=== PATIENT | male | born 1930 | race Caucasian/White ===

== ENCOUNTER 2017-03-02 23:10 | Inpatient (IN) | payer MEDICARE, BC ==
--- NOTE | 2017-03-02 23:21 | EDM.PDOC ---
ED HPI GENERAL MEDICAL PROBLEM - General Chief Complaint: General Stated Complaint: "Hurts above my hips and not voiding like I should" Time Seen by Provider: 03/02/17 23:21 Source of Information: Reports: Patient History Limitations: Reports: No Limitations - History of Present Illness INITIAL COMMENTS - FREE TEXT/NARRATIVE: Martín is an 86 year old male who presents to the ER with complaints of "not voiding much." He reports that he has not been drinking much today and has noticed that he hasn't been urinating as much. He reports he has voided 4 times today and has only went a little with each void. He reports he maybe has drank 3 glasses of water today. He also reports that he was recently seen in the clinic by Dr. Sosa on 02/28/2017, was diagnosed with bronchitis. He has been taking his antibiotic as prescribed. He reports he also had a steroid shot at that time. He reports his cough has gotten worse and he has been coughing up much more sputum. He does report shortness of breath with exertion. Denies fever , but reports he has been chilled. He also reports he has felt more weak than normal. Denies nausea, vomiting, diarrhea, chest pain. He reports he is supposed to have heart valve surgery on Monday, but was trying to "get over this cold." Onset: Gradual Onset Date: 02/28/17 Duration: Getting Worse Location: Reports: Back, Pelvis Associated Symptoms: Reports: Cough, cough w sputum, Fever/Chills (chills), Shortness of Breath, Weakness. 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 (see below) (antibiotics & steroid injection in clinic 02/28/2017) Bilateral Upper Hip Pain Score (Numeric/FACES): 5 - Related Data Allergies Allergy/AdvReac Type Severity Reaction Status Date / Time ceftriaxone sodium Allergy Rash Verified 03/02/17 23:45 [From Rocephin] cefuroxime axetil Allergy Rash Verified 03/02/17 23:45 [From Ceftin] ciprofloxacin [From Cipro] Allergy Cannot Verified 03/02/17 23:45 Remember ciprofloxacin HCl Allergy Cannot Verified 03/02/17 23:45 [From Cipro] Remember doxycycline Allergy Rash Verified 03/02/17 23:45 Iodinated Contrast- Oral and Allergy Shortness Verified 03/02/17 23:45 IV Dye of Breath moxifloxacin HCl Allergy Edema Verified 03/02/17 23:45 [From Avelox] Sulfa (Sulfonamide Allergy Diarrhea Verified 03/02/17 23:45 Antibiotics) Home Meds: Home Meds Albuterol [Ventolin HFA] 1 - 2 inhaler INH ASDIRECTED PRN 03/23/13 [History] Arformoterol [Brovana] 1 inh NEB BID 03/23/13 [History] Ascorbic Acid [Vitamin C] 500 mg PO DAILY 03/23/13 [History] Aspirin [Ecotrin] 325 mg PO DAILY 03/23/13 [History] Budesonide [Pulmicort] 1 inh NEB BID 03/23/13 [History] Doxazosin [Doxazosin Mesylate] 4 mg PO BEDTIME 03/23/13 [History] Fexofenadine [Maryellen] 180 mg PO DAILY 03/23/13 [History] Irbesartan [Avapro] 150 mg PO DAILY 03/23/13 [History] Metoprolol Tartrate [Lopressor] 50 mg PO BID 03/23/13 [History] Montelukast [Singulair] 10 mg PO DAILY 03/23/13 [History] Multivitamin [Multivitamins] 1 each PO DAILY 03/23/13 [History] Nitroglycerin 0.4 mg SL ASDIRECTED PRN 03/23/13 [History] Rosuvastatin [Crestor] 5 mg PO DAILY 03/23/13 [History] Ubidecarenone [Co Q-10] 10 mg PO DAILY 03/23/13 [History] Folic Acid/Vitamin B Comp W-C [Folbee Plus] 1 tab PO DAILY 11/02/14 [History] Triamcinolone Acetonide [Nasacort AQ [place]] 1 spray NASBOTH BEDTIME 11/02/14 [ History] amLODIPine Besylate [Norvasc] 2.5 mg PO DAILY 11/02/14 [History] Hydrocortisone [Proctosol-HC] 1 applic TOP ASDIRECTED PRN 01/24/16 [History] Omeprazole [Omeprazole] 20 mg PO BID 01/24/16 [History] Vitamin E 400 unit PO DAILY 03/27/16 [History] Azithromycin 500 mg PO DAILY 03/02/17 [History] Past Medical History HEENT History: Reports: Impaired Vision Cardiovascular History: Reports: High Cholesterol, Hypertension Respiratory History: Reports: Asthma, COPD Gastrointestinal History: Reports: GERD Genitourinary History: Reports: BPH Musculoskeletal History: Reports: Osteoarthritis Oncologic (Cancer) History: Reports: Basal Cell Carcinoma - Past Surgical History HEENT Surgical History: Reports: Myringotomy w Tube(s) GI Surgical History: Reports: Appendectomy, Cholecystectomy, Colonoscopy, EGD Social & Family History - Family History Family Medical History: Noncontributory - Tobacco Use Smoking Status *Q: Never Smoker - Caffeine Use Caffeine Use: Reports: Soda - Alcohol Use Days Per Week of Alcohol Use: 0 - Recreational Drug Use Recreational Drug Use: No ED ROS GENERAL - Review of Systems Review Of Systems: See Below Constitutional: Reports: Chills, Weakness, Fatigue, Decreased Appetite. Denies : Fever, Diaphoresis HEENT: Reports: No Symptoms Respiratory: Reports: Shortness of Breath, Wheezing, Cough, Sputum. Denies: Pleuritic Chest Pain, Hemoptysis Cardiovascular: Reports: Dyspnea on Exertion. Denies: Chest Pain, Blood Pressure Problem, Edema, Lightheadedness, Syncope Endocrine: Reports: Fatigue GI/Abdominal: Reports: Decreased Appetite. Denies: Abdominal Pain, Diarrhea, Nausea, Vomiting : Reports: Flank Pain, Urinary Retention (he feels like he might not be emptying his bladder). Denies: Dysuria, Frequency, Hematuria, Urgency Musculoskeletal: Reports: No Symptoms Skin: Reports: No Symptoms Neurological: Reports: Weakness. Denies: Confusion, Dizziness, Headache, Paresthesia, Pre-Existing Deficit, Tingling, Gait Disturbance Psychiatric: Reports: No Symptoms Hematologic/Lymphatic: Reports: No Symptoms Immunologic: Reports: No Symptoms ED EXAM, GENERAL - Physical Exam Exam: See Below Exam Limited By: No Limitations General Appearance: Alert, WD/WN, No Apparent Distress Eye Exam: Bilateral Eye: EOMI, PERRL Head: Atraumatic, Normocephalic Neck: Normal Inspection, Supple, Non-Tender, Full Range of Motion Respiratory/Chest: No Respiratory Distress, No Accessory Muscle Use, Decreased Breath Sounds, Crackles (RLL) Cardiovascular: Normal Peripheral Pulses, Regular Rate, Rhythm, No Edema, Systolic Murmur GI/Abdominal: Normal Bowel Sounds, Soft, Non-Tender, No Organomegaly, No Distention, No Abnormal Bruit, No Mass (Male) Exam: No: Suprapubic Fullness Back Exam: Normal Inspection, Full Range of Motion. No: CVA Tenderness (L), CVA Tenderness (R) Extremities: Normal Inspection, Normal Range of Motion, Non-Tender, Normal Capillary Refill, No Pedal Edema Neurological: Alert, Oriented, CN II-XII Intact, Normal Cognition, Normal Gait, Normal Reflexes, No Motor/Sensory Deficits Psychiatric: Normal Affect, Normal Mood Skin Exam: Warm, Dry, Intact, Normal Color, No Rash Lymphatic: No Adenopathy Course - Vital Signs Last Recorded V/S: Last Vital Signs Temp 96.1 F 03/03/17 00:20 Pulse 70 03/03/17 00:20 Resp 18 03/03/17 00:20 BP 100/59 L 03/03/17 00:20 Pulse Ox 95 03/03/17 00:20 - Orders/Labs/Meds Orders: Active Orders 24 hr Category Date Time Status Bladder Only [Pelvis Non OB Ltd] [US] Stat Exams 03/02/17 23:34 Taken Chest 2V [CR] Stat Exams 03/02/17 23:41 Taken Labs: Laboratory Tests 03/02/17 03/02/17 03/02/17 Range/Units 23:24 23:36 23:36 WBC 13.9 H (5.0-10.0) 10^3/uL RBC 3.64 L (4.50-6.00) 10^6/uL Hgb 11.7 L (14.0-18.0) g/dL Hct 35.4 L (40.0-54.0) % MCV 97.3 H (82.0-94.0) fL MCH 32.1 H (27.0-32.0) pg MCHC 33.1 (33.0-38.0) g/dL RDW Coeff of Janay 12.9 (11.0-15.0) % Plt Count 168 (150-400) 10^3/uL Neut % (Auto) 85.4 H (35-85) % Lymph % (Auto) 5.0 L (10-55) % [place] % (Auto) 9.6 (0-16) % Eos % (Auto) 0 (0-5) % Baso % (Auto) 0 (0-3) % Neut # (Auto) 11.85 H (1.80-7.00) 10^3/uL Lymph # (Auto) 0.70 L (1.00-4.80) 10^3/uL [place] # (Auto) 1.34 H (0.00-0.80) 10^3/uL Eos # (Auto) 0.00 (0.00-0.45) 10^3/uL Baso # (Auto) 0.00 10^3/uL Sodium 135 L (136-145) mEq/L Potassium 4.7 (3.5-5.0) mEq/L Chloride 102 (98-106) mEq/L Carbon Dioxide 23 (21-32) mmol/L BUN 28 H D (7-18) mg/dL Creatinine 1.3 (0.7-1.3) mg/dL Est Cr Clr Drug Dosing TNP Estimated GFR (MDRD) 53 L (>=60) mL/min Glucose 150 H D (75-99) mg/dL Calcium 8.8 (8.4-10.1) mg/dL C-Reactive Protein 4.0 H (0.2-0.8) mg/dL Urine Color Yellow (YELLOW) Urine Appearance Clear (CLEAR) Urine pH 5.5 (4.5-8.0) Ur Specific [place] 1.025 H (1.003-1.020) Urine Protein 30 H (NEGATIVE) mg/dL Urine Glucose (UA) Negative (NEGATIVE) mg/dL Urine Ketones Negative (NEGATIVE) mg/dL Urine Occult Blood Negative (NEGATIVE) Urine Nitrite Negative (NEGATIVE) Urine Bilirubin Negative (NEGATIVE) Urine Urobilinogen 1.0 (0.2-1.0) EU/dL Ur Leukocyte Esterase Negative (NEGATIVE) Meds: Medications Discontinued Medications Generic Name Dose Route Start Last Admin Trade Name Freq PRN Reason Stop Dose Admin Acetaminophen 650 mg 03/03/17 00:20 Tylenol PO Q4H PRN Pain (Mild 1-3)/fever Albuterol/Ipratropium 3 ml 03/03/17 00:30 03/03/17 01:12 Duoneb 3.0-0.5 Mg/3 Ml NEB 3 ml QID LUCAS Administration Amlodipine Besylate 2.5 mg 03/03/17 08:00 Norvasc PO DAILY [facility] Ascorbic Acid 500 mg 03/03/17 08:00 Vitamin C PO DAILY LUCAS Aspirin 325 mg 03/03/17 08:00 Ecotrin PO DAILY LUCAS Atropine Sulfate 1 mg 03/03/17 01:42 03/03/17 01:42 Atropine 0.1 Mg/Ml IVPUSH 03/03/17 01:43 1 mg ONETIME ONE Administration Enoxaparin Sodium 30 mg 03/03/17 00:20 03/03/17 01:12 Lovenox SUBCUT 30 mg Q24H LUCAS Administration Epinephrine HCl 1 mg 03/03/17 01:42 03/03/17 01:40 Epinephrine 1:10,000 IVPUSH 03/03/17 01:43 1 mg ONETIME ONE Administration Lactated Ringer's 1,000 mls @ 75 mls/hr 03/03/17 00:20 03/03/17 01:08 Ringers, Lactated IV 75 mls/hr ASDIRECTED LUCAS Administration Levofloxacin/Dextrose 500 mg/ 100 mls @ 100 mls/hr 03/03/17 00:20 03/03/17 01 :13 Premix IV 100 mls/hr Q24H LUCAS Administration Magnesium Hydroxide 30 ml 03/03/17 00:20 Milk Of Magnesia PO Q12H PRN Constipation Methylprednisolone Sodium Succinate 62.5 mg 03/03/17 00:30 03/03/17 01:11 Solu-Medrol IVPUSH 62.5 mg Q24H LUCAS Administration Metoprolol Tartrate 50 mg 03/03/17 08:00 Lopressor PO BID [facility] Montelukast Sodium 10 mg 03/03/17 08:00 Singulair PO DAILY [facility] Nitroglycerin 0.4 mg 03/03/17 00:20 Nitrostat SL ASDIRECTED PRN Chest Pain Non-Formulary Medication 1 inh 03/03/17 08:00 Arformoterol [Brovana] NEB BID LUCAS Non-Formulary Medication 1 inh 03/03/17 08:00 Budesonide [Pulmicort] NEB BID [facility] Non-Formulary Medication 4 mg 03/03/17 20:00 Doxazosin [Cardura] PO BEDTIME [facility]UC[facility] Non-Formulary Medication 180 mg 03/03/17 08:00 Fexofenadine [Maryellen] PO DAILY [facility] Non-Formulary Medication 1 tab 03/03/17 08:00 Folic Acid/Vitamin B Comp W-C [Folbee Plus] PO DAILY [facility] Non-Formulary Medication 150 mg 03/03/17 08:00 Irbesartan [Avapro] PO DAILY [facility] Non-Formulary Medication 1 each 03/03/17 08:00 Multivitamin [Multivitamins] PO DAILY [facility] Non-Formulary Medication 20 mg 03/03/17 08:00 Omeprazole [Omeprazole] PO BID [facility] Non-Formulary Medication 5 mg 03/03/17 08:00 Rosuvastatin [Crestor] PO DAILY [facility] Non-Formulary Medication 400 unit 03/03/17 08:00 Vitamin E [Vitamin E] PO DAILY [facility] Ondansetron HCl 4 mg 03/03/17 00:20 Zofran IV Q6H PRN Nausea/Vomiting Temazepam 15 mg 03/03/17 00:20 03/03/17 01:13 Restoril PO 15 mg BEDTIME PRN Administration Sleep - Re-Assessments/Exams Free Text/Narrative Re-Assessment/Exam: Labs and CXR results reviewed with patient and . CXR does appear to show RLL infiltrate. Given CURB 65 score (elevated BUN, age, & hypotensive recently) , I recommend we admit to inpatient for IV antibiotics and fluids. Departure - Departure Time of Disposition: 00:15 Disposition: Admitted As Inpatient 68 Condition: Fair Clinical Impression: Pneumonia Qualifiers: Pneumonia type: due to unspecified organism Laterality: right Lung location: lower lobe of lung Qualified Code(s): J18.1 - Lobar pneumonia, unspecified organism - Discharge Information - Problem List & Annotations (1) Pneumonia SNOMED Code(s): 570590603 Code(s): J18.9 - PNEUMONIA, UNSPECIFIED ORGANISM Status: Acute Qualifiers: Pneumonia type: due to unspecified organism Laterality: right Lung location: lower lobe of lung Qualified Code(s): J18.1 - Lobar pneumonia, unspecified organism (2) Hypertension SNOMED Code(s): 48259163 Code(s): I10 - ESSENTIAL (PRIMARY) HYPERTENSION Status: Chronic Qualifiers: Hypertension type: essential hypertension Qualified Code(s): I10 - Essential (primary) hypertension (3) Hyperlipidemia SNOMED Code(s): 89229863 Code(s): E78.5 - HYPERLIPIDEMIA, UNSPECIFIED Status: Chronic Qualifiers: Hyperlipidemia type: unspecified Qualified Code(s): E78.5 - Hyperlipidemia , unspecified (4) Aortic stenosis, severe SNOMED Code(s): 72767703 Code(s): I35.0 - NONRHEUMATIC AORTIC (VALVE) STENOSIS Status: Chronic Priority: High - Problem List Review Problem List Initiated/Reviewed/Updated: Yes - My Orders Last 24 Hours: My Active Orders 03/02/17 23:34 Bladder Only [Pelvis Non OB Ltd] [US] Stat 03/02/17 23:41 Chest 2V [CR] Stat - Assessment/Plan Admission H&P: Please use this note as an admission H&P Last 24 Hours: My Active Orders 03/02/17 23:34 Bladder Only [Pelvis Non OB Ltd] [US] Stat 03/02/17 23:41 Chest 2V [CR] Stat Plan: Admit to acute to Dr. Sosa Will start Levaqiun 500 mg Q 24 hrs, LR @ 100 mL/hr, solumedrol 62.5 mg Q 24 hrs , duonebs. Will get sputum culture Daily CBC & CRP
[2017-03-02 23:45] LABS: CHLORIDE,CL 102 mEq/L (98-106); SODIUM,NA 135 mEq/L (136-145)
[2017-03-03] MEDS ORDERED: Ondansetron 4 MG/2 ML SDV IV PRN (00:20)
[2017-03-03] MEDS ORDERED: Nitroglycerin 0.4 MG Tab.SL SL PRN (00:20)
[2017-03-03] MEDS ORDERED: Lactated Ringers 1,000 ML IV SCH (00:20)
[2017-03-03] MEDS ORDERED: Temazepam 15 MG Cap PO PRN (00:20)
[2017-03-03] MEDS ORDERED: Magnesium Hydroxide 400 MG/5 ML Susp 30 ML Cup PO PRN (00:20)
[2017-03-03] MEDS ORDERED: Enoxaparin 30 MG/0.3 ML Syringe SUBCUT SCH (00:20)
[2017-03-03] MEDS ORDERED: Levofloxacin/Dextrose 5%-Water 500 MG in Premix Bag 1 BAG IV SCH (00:20)
[2017-03-03] MEDS ORDERED: Acetaminophen 325 MG Tab PO PRN (00:20)
[2017-03-03] MEDS ORDERED: Albuterol/Ipratropium 3.0-0.5 MG/3 ML Neb Soln NEB SCH (00:30)
[2017-03-03] MEDS ORDERED: methylPREDNISolone Sodium Succinate 125 MG/2 ML SDV IVPUSH SCH (00:30)
[2017-03-03 01:14] VITALS: BP 100/59
[2017-03-03] MEDS ORDERED: Atropine 0.1 MG/ML 10 ML Syringe IVPUSH ONE (01:42)
[2017-03-03] MEDS ORDERED: EPINEPHrine 1:10,000 1 MG/10 ML Syringe IVPUSH ONE (01:42)
--- NOTE | 2017-03-03 03:08 | PCM.DCSUM1 ---
Discharge Summary - Hospital Course HPI Initial Comments: Martín is an 86 year old male who was admitted to the hospital from the ER for RLL pneumonia. At time of admission, patient was alert and oriented. He originally came to the ER with complaint of incomplete bladder emptying. He had reported that he felt like he had not been urinating much throughout the day and was going small amounts with each one. He did not feel like he was emptying and was having some pain in his bilateral pelvic area. He also reported he had a "chest cold." He was seen in the clinic on 02/28/2017 and diagnosed with bronchitis. He was started on azithromycin and given a steroid shot. He reported that the past few days his cough has gotten more productive. He reported some shortness of breath, slightly increased from his baseline. At time of admission he denied any chest pain, nausea, vomiting, diarrhea, dizziness, lightheadedness, confusion. He had no other associated symptoms. 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 Nursing staff reportedly got the patient up to the bathroom. He reported that he felt faint, so he was taken back to the bed. Once he got into the bed, nursing staff reported he went unresponsive and was pulseless. Chest compressions were started immediately. Patient was given 1 dose of epinephrine and 1 dose of atropine. Cardiac monitoring did show asystole. Estimated time of CPR was 10 minutes. Patient is a DO NOT INTUBATE. Patient is confused at present , was not confused upon admission. Vital signs are stable. Patient was transfused 2 L LR. Lab work at time of admission showed a WBC of 13.9, CRP 4.0, BUN 28. All other lab were relatively WNL. Following cardiac arrest, troponin 0.057, lactic acid 4.2. No electrolyte imbalances. Patient does complain of some chest pain currently across his anterior chest in the area where chest compressions were formed. EKG shows sinus tachycardia. Patient is alert, but confused. Risks and benefits of transfer were discussed with family. Risks of transfer include worsening of condition enroute, , helicopter crash. Benefits of transfer include higher level of care, cardiac specialty, and intensive care unit. Risks of nontransfer include worsening of condition, , and nonspecialized care. Benefits of nontransfer include familiar environment and close to home. Family verbalize understanding and are agreeable with transfer. - Discharge Data Discharge Date: 03/03/17 Discharge Disposition: DC/Tfer to Acute Hospital 02 Condition: Fair - Discharge Diagnosis/Problem(s) (1) Pneumonia SNOMED Code(s): 432474718 ICD Code: J18.9 - PNEUMONIA, UNSPECIFIED ORGANISM Status: Acute Qualifiers: Pneumonia type: due to unspecified organism Laterality: right Lung location: lower lobe of lung Qualified Code(s): J18.1 - Lobar pneumonia, unspecified organism (2) Hypertension SNOMED Code(s): 91938111 ICD Code: I10 - ESSENTIAL (PRIMARY) HYPERTENSION Status: Chronic Qualifiers: Hypertension type: essential hypertension Qualified Code(s): I10 - Essential (primary) hypertension (3) Hyperlipidemia SNOMED Code(s): 23345929 ICD Code: E78.5 - HYPERLIPIDEMIA, UNSPECIFIED Status: Chronic Qualifiers: Hyperlipidemia type: unspecified Qualified Code(s): E78.5 - Hyperlipidemia , unspecified (4) Aortic stenosis, severe SNOMED Code(s): 82709164 ICD Code: I35.0 - NONRHEUMATIC AORTIC (VALVE) STENOSIS Status: Chronic Priority: High (5) Cardiac arrest SNOMED Code(s): 298486076 ICD Code: I46.9 - CARDIAC ARREST, CAUSE UNSPECIFIED Status: Acute Priority: High Onset Date: 03/03/17 - Discharge Plan Home Medications: Home Meds Albuterol [Ventolin HFA] 1 - 2 inhaler INH ASDIRECTED PRN 03/23/13 [History] Arformoterol [Brovana] 1 inh NEB BID 03/23/13 [History] Ascorbic Acid [Vitamin C] 500 mg PO DAILY 03/23/13 [History] Aspirin [Ecotrin] 325 mg PO DAILY 03/23/13 [History] Budesonide [Pulmicort] 1 inh NEB BID 03/23/13 [History] Doxazosin [Doxazosin Mesylate] 4 mg PO BEDTIME 03/23/13 [History] Fexofenadine [Maryellen] 180 mg PO DAILY 03/23/13 [History] Irbesartan [Avapro] 150 mg PO DAILY 03/23/13 [History] Metoprolol Tartrate [Lopressor] 50 mg PO BID 03/23/13 [History] Montelukast [Singulair] 10 mg PO DAILY 03/23/13 [History] Multivitamin [Multivitamins] 1 each PO DAILY 03/23/13 [History] Nitroglycerin 0.4 mg SL ASDIRECTED PRN 03/23/13 [History] Rosuvastatin [Crestor] 5 mg PO DAILY 03/23/13 [History] Ubidecarenone [Co Q-10] 10 mg PO DAILY 03/23/13 [History] Folic Acid/Vitamin B Comp W-C [Folbee Plus] 1 tab PO DAILY 11/02/14 [History] Triamcinolone Acetonide [Nasacort AQ [place]] 1 spray NASBOTH BEDTIME 11/02/14 [ History] amLODIPine Besylate [Norvasc] 2.5 mg PO DAILY 11/02/14 [History] Hydrocortisone [Proctosol-HC] 1 applic TOP ASDIRECTED PRN 01/24/16 [History] Omeprazole [Omeprazole] 20 mg PO BID 01/24/16 [History] Vitamin E 400 unit PO DAILY 03/27/16 [History] Azithromycin 500 mg PO DAILY 03/02/17 [History] Forms: ED Department Discharge - Discharge Summary/Plan Comment Discharge Summary/Plan Comment: Transfer to [facility] via [place] [facility] Dr. Hernandez (hospitalist) accepting physician Patient will go to room 538 at the [facility] Subjective Update: Patient complains of chest pain. Is confused from baseline presentation to ER. Vital signs are stable. Patient is alert and conversing. Functional Status: Reports: Urinating, New Symptoms (chest pain). Denies: Pain Controlled, Ambulating - Review of Systems General: Reports: Weakness, Fatigue. Denies: Fever HEENT: Reports: No Symptoms Pulmonary: Reports: Shortness of Breath, Cough, Sputum Cardiovascular: Reports: Chest Pain, Dyspnea on Exertion, Lightheadedness. Denies: Palpitations Gastrointestinal: Reports: No Symptoms Genitourinary: Reports: No Symptoms Musculoskeletal: Reports: No Symptoms Skin: Reports: No Symptoms Neurological: Reports: Confusion, Weakness. Denies: Dizziness, Headache, Numbness, Pre-Existing Deficit, Tingling, Trouble Speaking Psychiatric: Reports: Confusion - Patient Data Vitals - Most Recent: Last Vital Signs Temp 96.1 F 03/03/17 00:20 Pulse 70 03/03/17 00:20 Resp 18 03/03/17 00:20 BP 100/59 L 03/03/17 00:20 Pulse Ox 95 03/03/17 00:20 Weight - Most Recent: 149 lb 3.2 oz Lab Results - Last 24 hrs: Laboratory Results - last 24 hr 03/03/17 Range/Units 02:33 Lactic Acid 4.2 H (0.4-2.0) mmol/L Med Orders - Current: Current Medications Acetaminophen (Tylenol) 650 mg PO Q4H PRN PRN Reason: Pain (Mild 1-3)/fever Albuterol/Ipratropium (Duoneb 3.0-0.5 Mg/3 Ml) 3 ml NEB QID [facility] Last Admin: 03/03/17 01:12 Dose: 3 ml Amlodipine Besylate (Norvasc) 2.5 mg PO DAILY [facility] Ascorbic Acid (Vitamin C) 500 mg PO DAILY [facility] Aspirin (Ecotrin) 325 mg PO DAILY [facility] Enoxaparin Sodium (Lovenox) 30 mg SUBCUT Q24H [facility] Last Admin: 03/03/17 01:12 Dose: 30 mg Lactated Ringer's (Ringers, Lactated) 1,000 mls @ 75 mls/hr IV ASDIRECTED [facility] Last Admin: 03/03/17 01:08 Dose: 75 mls/hr Levofloxacin/Dextrose 500 mg/ (Premix) 100 mls @ 100 mls/hr IV Q24H [facility] Last Admin: 03/03/17 01:13 Dose: 100 mls/hr Magnesium Hydroxide (Milk Of Magnesia) 30 ml PO Q12H PRN PRN Reason: Constipation Methylprednisolone Sodium Succinate (Solu-Medrol) 62.5 mg IVPUSH Q24H [facility] Last Admin: 03/03/17 01:11 Dose: 62.5 mg Metoprolol Tartrate (Lopressor) 50 mg PO BID [facility] Montelukast Sodium (Singulair) 10 mg PO DAILY [facility] Nitroglycerin (Nitrostat) 0.4 mg SL ASDIRECTED PRN PRN Reason: Chest Pain Non-Formulary Medication (Arformoterol [Brovana]) 1 inh NEB BID [facility] Non-Formulary Medication (Budesonide [Pulmicort]) 1 inh NEB BID [facility] Non-Formulary Medication (Doxazosin [Cardura]) 4 mg PO BEDTIME [facility] Non-Formulary Medication (Fexofenadine [Maryellen]) 180 mg PO DAILY [facility] Non-Formulary Medication (Folic Acid/Vitamin B Comp W-C [Folbee Plus]) 1 tab PO DAILY [facility] Non-Formulary Medication (Irbesartan [Avapro]) 150 mg PO DAILY [facility] Non-Formulary Medication (Multivitamin [Multivitamins]) 1 each PO DAILY [facility] Non-Formulary Medication (Omeprazole [Omeprazole]) 20 mg PO BID [facility] Non-Formulary Medication (Rosuvastatin [Crestor]) 5 mg PO DAILY [facility] Non-Formulary Medication (Vitamin E [Vitamin E]) 400 unit PO DAILY [facility] Ondansetron HCl (Zofran) 4 mg IV Q6H PRN PRN Reason: Nausea/Vomiting Temazepam (Restoril) 15 mg PO BEDTIME PRN PRN Reason: Sleep Last Admin: 03/03/17 01:13 Dose: 15 mg - Exam General: Reports: Alert, Cooperative, Mild Distress HEENT: Reports: Pupils Equal, Pupils Reactive, EOMI, Mucous Membr. Moist/[place], Other (cataract) Neck: Reports: Supple, Trachea Midline Lungs: Reports: Crackles (RLL), Wheezing Cardiovascular: Reports: Regular Rhythm, Tachycardia, Murmurs (systollic) Extremities: Normal Inspection, Normal Range of Motion, Non-Tender, No Pedal Edema, Normal Capillary Refill Skin: Reports: Warm, Dry, Intact Neurological: Reports: No New Focal Deficit, Normal Speech, Strength Equal Bilateral Psy/Mental Status: Reports: Alert, Normal Affect, Normal Mood, Anxious EKG INTERPRETATION EKG Date: 03/03/17 Rhythm: Other (sinus tachycardia) *Q Meaningful Use (DIS) - VTE *Q VTE Criteria *Q: - Stroke *Q Stroke Criteria *Q: - AMI *Q AMI Criteria *Q:
[2017-03-03] MEDS ORDERED: FOLIC ACID PO SCH (08:00)
[2017-03-03] MEDS ORDERED: Non-Formulary Medication 1 Each (Omeprazole [Omeprazole] 20 MG) PO SCH (08:00)
[2017-03-03] MEDS ORDERED: IRBESARTAN 150 MG PO SCH (08:00)
[2017-03-03] MEDS ORDERED: Aspirin 325 MG Tab.EC PO SCH (08:00)
[2017-03-03] MEDS ORDERED: VITAMIN B COMP W C PO SCH (08:00)
[2017-03-03] MEDS ORDERED: Ascorbic Acid 500 MG Tab PO SCH (08:00)
[2017-03-03] MEDS ORDERED: ARFORMOTEROL NEB SCH (08:00)
[2017-03-03] MEDS ORDERED: BUDESONIDE NEB SCH (08:00)
[2017-03-03] MEDS ORDERED: Montelukast 10 MG Tab PO SCH (08:00)
[2017-03-03] MEDS ORDERED: Non-Formulary Medication 1 Each (Rosuvastatin [Crestor] 5 MG) PO SCH (08:00)
[2017-03-03] MEDS ORDERED: Non-Formulary Medication 1 Each (Vitamin E [Vitamin E] 400 UNIT) PO SCH (08:00)
[2017-03-03] MEDS ORDERED: Metoprolol Tartrate 50 MG Tab PO SCH (08:00)
[2017-03-03] MEDS ORDERED: amLODIPine 2.5 MG Tab PO SCH (08:00)
[2017-03-03] MEDS ORDERED: Non-Formulary Medication 1 Each (Fexofenadine [Allegra] 180 MG) PO SCH (08:00)
[2017-03-03] MEDS ORDERED: Non-Formulary Medication 1 Each (Multivitamin [Multivitamins] 1 EACH) PO SCH (08:00)
[2017-03-03] MEDS ORDERED: DOXAZOSIN 4 MG PO SCH (20:00)
== END 2017-03-03 03:30 | DRG 193 ==
LOC: CC.ED 23:10 → CC.MS 03-03 00:10 → CC.ED 03-03 00:10
PROVIDERS: ADMIT Nurse Practitioner Family; ATTEND General Practice
PROC: 5A12012 Performance of Cardiac Output, Single, Manual (ICD-10-PCS; principal; 2017-03-03)
DX: J18.9 Pneumonia, unspecified organism (principal); I46.9 Cardiac arrest, cause unspecified; E78.5 Hyperlipidemia, unspecified; I10 Essential (primary) hypertension; I35.0 Nonrheumatic aortic (valve) stenosis; J44.9 Chronic obstructive pulmonary disease, unspecified; K21.9 Gastro-esophageal reflux disease without esophagitis; N40.0 Benign prostatic hyperplasia without lower urinary tract symptoms; M19.90 Unspecified osteoarthritis, unspecified site; H54.7 Unspecified visual loss; Z88.1 Allergy status to other antibiotic agents; Z88.2 Allergy status to sulfonamides; Z91.041 Radiographic dye allergy status; Z79.82 Long term (current) use of aspirin; Z79.899 Other long term (current) drug therapy; R41.0 Disorientation, unspecified
CPT/HCPCS: 36415; 71020; 76857; 80048; 80053; 81003; 83605; 83735; 84484; 85025; 86140; 94640; 99285; A9270-GY; J0171; J0461; J1650; J1956; J2930; J7120